=== PATIENT | female | born 1985 | race African-American/Black ===

== ENCOUNTER 2023-12-14 12:22 | Emergency (ER) | payer MEDICAID ==
[~2023-12-14] VITALS: Ht 160 cm; Wt 85.0 kg
[2023-12-14 12:26] VITALS: PULSE 99
[2023-12-14 12:33] VITALS: BP 121/78; RESP 16; TEMP 98.6; O2SAT 100
[2023-12-14] MEDS ORDERED: NAPR-681 PO (13:46)
[2023-12-14] MEDS ORDERED: CIPR2.5D20 RIGHTEYE (13:46)
== END 2023-12-14 14:54 | disposition home or self-care (01) ==
LOC: ER 12:22
DX: H10.31 Unspecified acute conjunctivitis, right eye (principal); Z88.0 Allergy status to penicillin
CPT/HCPCS: 99283